=== PATIENT | male | born 1970 | race Caucasian/White ===

== ENCOUNTER 2019-06-19 09:49 | Outpatient (REF) | payer BC, SELFPAY ==
[2019-06-19 14:03] LABS: Calculated LDL 149 mg/dL (<100); Cholesterol 213 mg/dL (<200); Glucose 94 mg/dL (74-106); HDL Cholesterol 58 mg/dL (40-60); Triglyceride 33 mg/dL (<150)
== END 2019-06-19 10:09 ==
LOC: NCHCN 09:49
PROVIDERS: PCP Family Medicine; Visit Provider Nurse Practitioner
DX: Z13.1 Encounter for screening for diabetes mellitus (principal); Z13.220 Encounter for screening for lipoid disorders
CPT/HCPCS: 80061; 82947

== ENCOUNTER 2019-12-30 09:12 | Emergency (ER) | payer BC, SELFPAY ==
[2019-12-30 09:17] VITALS: BP 138/85; PULSE 95; RESP 16; TEMP 37.1; O2SAT 98
--- NOTE | 2019-12-30 09:40 | ED.GENADUL_ITS ---
Discharge Plan Disposition Patient Disposition: HOME Condition: Stable Discharge Details Chief Complaint: Nk/Back Pain Clinical Impression: Low back pain Primary Care Provider: Roxana Alejandro ED Provider: Edu Bates Home Meds and New Rx's Prescriptions: New cyclobenzaprine 10 mg tablet 10 mg PO TID PRNQty: 20 RF: 0 Discharge Instructions Instructions: Low Back Strain (ED) Additional Instructions: follow up with your primary care provider and physical therapy as soon as possible if you have fevers, difficulty urinating or weakness return to the emergency department you can take 1000mg tylenol and 600mg ibuprofen every 6 hours as needed for pain do not drink alcohol or operate heavy machinery if you take the cyclobenzaprine (flexeril) Stand Alone Forms: Physical Therapy Referral Medical Decision Making 49 yo male who denies chronic medical problems and never smoker comes in with cc of right lower back pain. States started yesterday after bending over digging a trench. Did not fall or have trauma. Has right lower back pain and normal gait, normal range of motion but feels better standing. No saddle anesthesia no urinary retention, normal reflexes. Has no findings on history or physical to suggest sea, cauda equina and no infectious symptoms to suggest osteo. Suspect back strain, will treat with muscle relaxer and reassess. pt feels mildly better with stable exam, no saddle anesthesia. Will have him f/u with PT and pcp and return precautions given Differential Diagnosis Differential Diagnosis: muscle strain, back strain, muscle spasm, disc herniation HPI General Mode of arrival: ambulatory . Date/Time Provider Initiated Documentation: 12/30/19 09:15 . Limitations to Documentation: no limitations . Information obtained by: patient . History of Present Illness 49 year old M presents to the emergency department with the chief complaint of right lower back pain, described as moderate, No relieving factors improve symptom(s), No exacerbating factors reported . Patient did receive the following treatments prior to arrival, NSAID Related Data Home Medications Medication Instructions Recorded Confirmed cyclobenzaprine 10 mg PO TID PRN #20 tab 12/30/19 Previous Rx's Medication Instructions Recorded cyclobenzaprine 10 mg PO TID PRN #20 tab 12/30/19 Allergies Allergy/AdvReac Type Severity Reaction Status Date / Time No Known Allergies Allergy Unverified 12/30/19 09:24 General Stated Complaint: Nk/Back Pain MARU: 4 Review of Systems All systems reviewed & are unremarkable except as noted in HPI and below Constitutional Constitutional: Denies chills, Denies fever(s) and Denies weakness Cardiovascular Cardiovascular: Denies chest pain and Denies dyspnea Respiratory Respiratory: Denies cough and Denies dyspnea Gastrointestinal Gastrointestinal: Denies abdominal pain, Denies nausea and Denies vomiting Genitourinary Genitourinary: Denies dysuria Integumentary/Breasts Skin/Breast: Denies rash Neurologic Neurologic: Denies weakness [facility] Social History Smoking/Tobacco Use Status: Never Alcohol Intake: current Alcohol Intake frequency: a few times a month Drug use: Never Do you feel safe at home: Yes Do you feel safe in your relationship?: Yes Exam Const General: no acute distress Orientation: alert HENMT Head: normal to inspection Ears: external ears normal General nose exam: external nose normal Mouth: moist mucous membranes Eyes General: appearance normal, both eyes and all related structures Neck Neck: normal visual inspection Resp Effort & Inspection: normal respiratory effort and able to speak in complete sentences Cardio Rate: regular rate Back/Spine/Pelvis Back: no CVA tenderness Skin General skin exam: no rashes or lesions noted Neuro General: patient alert and patient oriented x3 Extrem General: normal to inspection Psych Mental Status: mental status grossly normal Course Vital Signs Vital signs: Vital Signs Temperature 37.1 C 12/30/19 09:17 Pulse 95 H 12/30/19 09:17 Respiratory Rate 16 12/30/19 09:17 Blood Pressure 138/85 12/30/19 09:17 Pulse Oximetry 98 12/30/19 09:17 Temperature 37.1 C 12/30/19 09:17 Temperature Source Temporal Artery Scan 12/30/19 09:17 Pulse 95 H 12/30/19 09:17 Respiratory Rate 16 12/30/19 09:17 Respiratory Effort Non-Labored 12/30/19 09:22 Blood Pressure 138/85 12/30/19 09:17 Blood Pressure Position Standing 12/30/19 09:17 Pulse Oximetry 98 12/30/19 09:17 Oxygen Delivery Method Room Air 12/30/19 09:17 Oxygen Flow Rate 0 12/30/19 09:17 Pain Level 6 12/30/19 09:24
[2019-12-30] MEDS: Cyclobenzaprine 10 MG TAB PO (10:02)
== END 2019-12-30 10:36 | disposition home or self-care (01) ==
PROVIDERS: Emergency Provider Emergency Medicine; PCP Nurse Practitioner
DX: M54.5 Low back pain (principal); X50.0XXA Overexertion from strenuous movement or load, initial encounter; Y99.0 Civilian activity done for income or pay
CPT/HCPCS: 99283

== ENCOUNTER 2020-11-15 06:06 | Emergency (ER) | payer BC, SELFPAY ==
[2020-11-15] VITALS (36 sets, daily range): BP systolic 99–128; BP diastolic 66–83; PULSE 63–84; RESP 9–24; TEMP 36.2; O2SAT 94–100
--- NOTE | 2020-11-15 06:00 | RT.EKG_ITS ---
APPROVED REPORT Exam: Resting ECG Reason for Exam: dizziness/near syncope Patient Location: E HR:62 bpm ECG Measurements Heart Rate 62 AXIS CA 165 P 46 QRSd 97 QRS 65 QT 394 T 19 QTc 400 Conclusion Sinus rhythm...normal P axis, V-rate 60- 99 Physician: no stemi, intervals normal
[2020-11-15] MEDS: Normal Saline 1,000 ML 1000 ML IV ×2 (06:31→08:41)
[2020-11-15 06:37] LABS: Abs Immature Grans 0.01 10^3/uL (0.0-0.06); Absolute Basophil Count 0.02 10^3/uL (0.0-0.2); Absolute Eosinophil Count 0.11 10^3/uL (0.0-0.7); Absolute Lymphocyte Count 1.86 10^3/uL (1.2-3.4); Absolute Monocyte Count 0.51 10^3/uL (0.1-0.8); Absolute Neutrophil Count 3.12 10^3/uL (1.2-6.7); Basophils % 0.4; HCT 47.8 % (40.0-50.0); HGB 15.3 g/dL (13.5-17.5); Immature Grans % 0.2; MCH 26.2 pg (27.0-33.0); MCV 81.8 fL (80-95); MPV 9.7 fL (8.0-11.0); Monocytes % 9.1; Neutrophils % 55.3; Nucleated RBC 0 %; Platelet Count 158 10^3/uL (130-400); RBC 5.84 10^6/uL (4.36-5.78); RDW 13.1 % (11.8-14.1); RDW-SD 38.6 fL; WBC 5.63 10^3/uL (4.4-10.8)
--- NOTE | 2020-11-15 07:02 | ED.GENADUL_ITS ---
Discharge Plan Disposition Patient Disposition: HOME Condition: Improving Discharge Details Clinical Impression: Vasovagal near syncope Primary Care Provider: Roxana Alejandro ED Provider: Linsey Reyes Home Meds and New Rx's Prescriptions: Continued cyclobenzaprine 10 mg tablet 10 mg PO TID PRNQty: 20 RF: 0 Discharge Instructions Instructions: Near Syncope (ED) Additional Instructions: Drink plenty of fluids and get plenty of rest. Be sure to stand up slowly to prevent lightheadedness. Call your primary care doctor's office tomorrow to schedule a follow-up appointment for reevaluation this week. Return the cardiac cath lab technologist to the hospital as directed. Return immediately to the emergency department if you develop any worsening or new concerning symptoms. Discharge Data Discharge Physician: Linsey Reyes Medical Decision Making <Eugene Cabral DO - Last Filed: 11/15/20 07:10> This is a 49-year-old male no significant past medical history who presents today for evaluation of syncope. Patient states that last night at about 5 AM he woke up and had to go pee. As he was getting up he felt very lightheaded, dizzy, felt like he was about to pass out. Called for help and fell forward onto the bed. He did not strike his head hard. He did not lose consciousness however his was there states that he was going in and out of normal mentation. Entire episode lasted about 10 to 15 minutes until he was back to his normal level. EMS was called. Upon their arrival they noted that his blood pressure was in the 90s systolic, blood glucose is slightly low. However it by that time the patient had returned to his normal status, and elected to come in on his own for further evaluation. Patient admits to having a similar episode about a year ago. He denies any headache, chest pain, chest tightness, current shortness of breath, current vision changes, fever, chills. Of note he was notably sweaty and diaphoretic appearing during the episode. Patient denies any family history of sudden , cardiac problems. His does note that they had vigorous sex last evening, however there are no drugs involved, no cocaine, he had no issues or deficiencies during the episode per . The patient denies any headache red flags of worst headache of life, thunderclap headache, neck pain, fever, chills, concerning family history of polycystic kidney disease, Marfan syndrome, Tanner-Danlos syndrome, abdominal aortic aneurysm, aortic dissection, or intracranial aneurysm. Physical exam is notably unremarkable. No neurologic deficits, no murmur or bruit. Normal ambulation, normal gait. Mucous membranes are notably dry. Patient does admit to having a few beers last night for the November celebration, but states that this is not a typical or of significant excess. Differential at this time is highest for vasovagal syncope secondary to mild dehydration, however cardiac dysrhythmia, PE, or on the differential but less likely. Seizure is inconsistent with presentation and history, intercranial abnormality is inconsistent with current exam and history. Symptoms are also inconsistent with a cranial aneurysm nor rupture. Laboratory work-up shows normal white count, normal hemoglobin, electrolytes normal. Troponin and EKG unremarkable. Thyroid function good. Pending D-dimer. We will gently rehydrate, monitor closely and reassess. <Linsey Reyes DO - Last Filed: 11/15/20 10:16> 0730 -- Please see Dr. Cabral's note for initial presentation, exam and plan. Case endorsed to follow-up on labs and final disposition. Plan if D-dimer positive to proceed with CT chest but if negative can obtain a portable chest x- ray. Labs reviewed and unremarkable. D-dimer negative. Troponin negative. His EKG notes a rate of 62, sinus and no STEMI. Patient's description of events notes that he became lightheaded upon standing when awakened to urinate in the middle of the night. Denies any chest pain or palpitations. Review of vitals on EMS paperwork that provided note that his systolic blood pressure was in the 90s and his blood sugar was 60s. He states his symptoms improved when sitting down and he does feel better with IV fluids here. His blood pressure is now 117/74. He does endorse that he had 3 alcoholic drinks yesterday and ate less than usual. Suspect most likely vasovagal near syncope. The Holter monitor that was ordered per Dr. Cabral has been placed by respiratory. Patient still complaining of mild headache. He denies any head injury and has no focal deficits. Do not see an indication for CT head imaging. Will give another liter of IV fluids and IV Tylenol, obtain a portable chest x- ray and reassess. 1000 --chest x-ray negative. Patient reassessed and he denies any headache and feels much better. Blood pressure improved. Patient advised to return with a Holter monitor to the hospital as directed. Advised to call PCP tomorrow for follow-up this week. Usual and customary return precautions given prior to discharge. Medical Records Medical records reviewed: Yes I reviewed the patient's medical records. ECG Data Attestation: I personally reviewed and interpreted this ECG (s) as follows: Interpretation: Rate of 62, sinus, T wave inversion in lead III. No acute ST elevation or depression. [place] 165. QRS 65. QTc 400. HPI <Eugene Cabral, - Last Filed: 11/15/20 07:10> General Date/Time Provider Initiated Documentation: 11/15/20 06:08 . HPI Narrative: This is a 49-year-old male no significant past medical history who presents today for evaluation of syncope. Patient states that last night at about 5 AM he woke up and had to go pee. As he was getting up he felt very lightheaded, dizzy, felt like he was about to pass out. Called for help and fell forward onto the bed. He did not strike his head hard. He did not lose consciousness however his was there states that he was going in and out of normal mentation. Entire episode lasted about 10 to 15 minutes until he was back to his normal level. EMS was called. Upon their arrival they noted that his blood pressure was in the 90s systolic, blood glucose is slightly low. However it by that time the patient had returned to his normal status, and elected to come in on his own for further evaluation. Patient admits to having a similar episode about a year ago. He denies any headache, chest pain, chest tightness, current shortness of breath, current vision changes, fever, chills. Of note he was notably sweaty and diaphoretic appearing during the episode. Patient denies any family history of sudden , cardiac problems. His does note that they had vigorous sex last evening, however there are no drugs involved, no cocaine, he had no issues or deficiencies during the episode per . The patient denies any headache red flags of worst headache of life, thunderclap headache, neck pain, fever, chills, concerning family history of polycystic kidney disease, Marfan syndrome, Tanner-Danlos syndrome, abdominal aortic aneurysm, aortic dissection, or intracranial aneurysm. Related Data Home Medications Medication Instructions Recorded Confirmed cyclobenzaprine 10 mg PO TID PRN #20 tab 12/30/19 Previous Rx's Medication Instructions Recorded cyclobenzaprine 10 mg PO TID PRN #20 tab 12/30/19 Allergies Allergy/AdvReac Type Severity Reaction Status Date / Time No Known Allergies Allergy Unverified 12/30/19 09:24 General Stated Complaint: Dizzy/Sync MARU: 3 Review of Systems <Eugene Cabral DO - Last Filed: 11/15/20 07:10> All systems reviewed & are unremarkable except as noted in HPI and below PFSH <Eugene Cabral DO - Last Filed: 11/15/20 07:10> Social History Smoking/Tobacco Use Status: Never Smoking risk assessment performed?: Yes Alcohol Intake: current Alcohol Intake frequency: a few times a month Drug use: Never Do you feel safe at home: Yes Do you feel safe in your relationship?: Yes Exam <Eugene Cabral DO - Last Filed: 11/15/20 07:10> Narrative Exam Narrative: 1.Const: Well-nourished, Well-developed, appearing stated age 2.Eyes: PERRL, no conjunctival injection, and symmetrical lids. 3.ENT: Atraumatic external nose and ears. Notably dry MM. Neck: Symmetric, trachea midline, No thyromegaly. 4.CVS: +S1/S2, No murmurs or gallops. Peripheral pulses 2+ and equal in all extremities. Brisk capillary refill in all extremities. 5.RESP: Unlabored respiratory effort. Clear to auscultation bilaterally. No wheezes rales or rhonchi 6.GI: Soft, Nontender/Nondistended, No hepatosplenomegaly. No guarding or rebound. 7.MSK: Normocephalic/Atraumatic, Extremities w/o deformity or ttp No cyanosis or clubbing, Normal movement of all extremities 8.Skin: Warm, Dry. No rashes or lesions. 9.Neuro: social services technician II-XII grossly intact. Sensation grossly intact, no focal neurologic deficits. All 6 cardinal planes of vision are fully intact. No evidence of rotatory or vertical nystagmus. The patient demonstrated a normal rxyigc-hrje-dbdhwv, good dexterity. There was no evidence of dysdiadochokinesia. Patient was able to ambulate without difficulty. There was no wide-based gait. Romberg testing was normal. Hakv-sk-vthy testing was normal. Sensation was intact bilaterally as well as muscle strength bilaterally for all extremities. Patient was able to verbalize butter cup with no slurring, or miss pronunciation. 10.Psych: (AAO) x3. Appropriate mood and affect Course <Eugene Cabral, - Last Filed: 11/15/20 07:10> Vital Signs Vital signs: Vital Signs Temperature 36.2 C L 11/15/20 06:10 Pulse 76 11/15/20 06:10 Respiratory Rate 16 11/15/20 06:10 Blood Pressure 128/83 11/15/20 06:10 Pulse Oximetry 98 11/15/20 06:10 Temperature 36.2 C L 11/15/20 06:10 Temperature Source Skin 11/15/20 06:10 Pulse 76 11/15/20 06:10 Respiratory Rate 16 11/15/20 06:47 Respiratory Effort 11/15/20 06:47 Blood Pressure 128/83 11/15/20 06:10 Blood Pressure Position Sitting 11/15/20 06:10 Pulse Oximetry 98 11/15/20 06:10 Oxygen Delivery Method Room Air 11/15/20 06:10 Oxygen Flow Rate 0 11/15/20 06:10 Lab/Test Results Lab/Test Results: Laboratory Tests Range/Units 11/15/20 06:20 WBC (4.4-10.8) 10^3/uL 5.63 RBC (4.36-5.78) 10^6/uL 5.84 H Hgb (13.5-17.5) g/dL 15.3 Hct (40.0-50.0) % 47.8 MCV (80-95) fL 81.8 MCH (27.0-33.0) pg 26.2 L MCHC (32.0-36.0) % 32.0 RDW (11.8-14.1) % 13.1 Plt Count (130-400) 10^3/uL 158 MPV (8.0-11.0) fL 9.7 Immature Gran % 0.2 Neutrophils % 55.3 Lymphocytes % 33.0 Monocytes % 9.1 Eosinophils % 2.0 Basophils % 0.4 Nucleated RBC % % 0 Absolute Neutrophils (1.2-6.7) 10^3/uL 3.12 Absolute Lymphocytes (1.2-3.4) 10^3/uL 1.86 Absolute Monocytes (0.1-0.8) 10^3/uL 0.51 Absolute Eosinophils (0.0-0.7) 10^3/uL 0.11 Absolute Basophils (0.0-0.2) 10^3/uL 0.02 Sign Out <Eugene Cabral DO - Last Filed: 11/15/20 07:10> Sign Out Data: Sign Out Comment: Near syncope, follow-up on D-dimer. Last updated by Eugene Cabral DO at 11/15/20 07:22
[2020-11-15 07:04] LABS: ALT 33 U/L (16-63); AST 17 U/L (15-37); Albumin 3.7 g/dL (3.4-5.0); Alkaline Phosphatase 84 U/L (46-116); Anion Gap 8.1 mmol/L (3-11); BUN 19 mg/dL (7-18); Bilirubin, Total 0.3 mg/dL (0.2-1.0); CO2 27.9 mmol/L (21.0-32.0); Calcium 8.7 mg/dL (8.5-10.1); Chloride 107 mmol/L (98-107); Glucose 100 mg/dL (74-106); Potassium 3.6 mmol/L (3.5-5.1); Sodium 143 mmol/L (136-145); TSH 3.61 uIU/mL (0.36-3.74); Total Protein 7.2 g/dL (6.4-8.2); Troponin I < 0.05 ng/mL (<0.06)
--- NOTE | 2020-11-15 07:27 | HOLTER_ITS ---
APPROVED REPORT Conclusion This is a 48-hour monitor ordered for indication of palpitations. The patient was normal sinus rhythm with majority the recording with an average heart rate of 70 bpm. There were 0 episodes of ventricular tachycardia and one single PVC. There was one episode of supraventricular tachycardia lasting a total of 3 beats and rare PACs. There were no episodes of atrial fibrillation, no pauses greater than 3 seconds and no evidence of hi gh degree heart block. There were no patient triggered events.
[2020-11-15 07:46] LABS: D-Dimer 153 ng/mlFEU (<500)
--- NOTE | 2020-11-15 08:30 | DI.RAD_ITS ---
Exam(s) XR PORTABLE CHEST AP EXAM: XR PORTABLE CHEST AP CLINICAL HISTORY: dizziness, r/o acute disease TECHNIQUE: 2D digital imaging was performed. COMPARISON: No exams were available for comparison FINDINGS: LUNGS: Minimal linear scarring or atelectasis at the lung bases. Clear. No pleural abnormality seen . HEART: Normal. MEDIASTINUM: Normal. BONES: Unremarkable. IMPRESSION: No acute pulmonary findings. DATA REPOSITORY: RADIATION DOSE DELIVERED:
[2020-11-15] MEDS: ACETAMINOPHEN 1,000 MG/100 ML BTL 400 MG IVPB (08:41)
--- NOTE | 2020-11-15 09:19 | DI.VRAD_ITS ---
PROCEDURE INFORMATION: Exam: XR Chest Exam date and time: 11/15/2020 8:32 AM Age: 49 years old Clinical indication: Other: Dizziness TECHNIQUE: Imaging protocol: XR of the chest. Views: 1 view. COMPARISON: No relevant prior studies available. FINDINGS: Lungs: Unremarkable. No consolidation. Pleural spaces: Unremarkable. No pleural effusion. No pneumothorax. Heart/Mediastinum: Unremarkable. No cardiomegaly. Bones/joints: Unremarkable. IMPRESSION: No acute findings. Dictated and Authenticated by: Jelena Hickey MD. Ordering:JOHN Stiles MD
== END 2020-11-15 10:26 | disposition home or self-care (01) ==
PROVIDERS: Student in an Organized Health Care Education/Training Program; Emergency Provider Physician Assistant; PCP Nurse Practitioner
DX: R55 Syncope and collapse (principal); R51.9 Headache, unspecified; E86.0 Dehydration
CPT/HCPCS: 36415; 80053; 93005; 96361; 96374; 99285; 71045; 83735; 84443; 84484; 85025; 85379; 93010; 93225; 99284; J0131

== ENCOUNTER 2020-11-19 14:14 | Outpatient (CLI) | payer BC, SELFPAY | END 2020-11-19 14:34 | PROVIDERS: PCP Nurse Practitioner; Visit Provider Physician Assistant | DX: R00.2 Palpitations (principal) | CPT/HCPCS: 93226 ==

== ENCOUNTER 2022-01-05 07:10 | Day surgery (SDC) | payer BC, SELFPAY ==
--- NOTE | 2022-01-05 05:52 | W.PM.HP.N ---
Date of service: 01/05/22 Assessment and Plan Assessment and plan (1) Screening for colon cancer: Status: Acute Assessment and plan: Proceed with screening colonoscopy today History of Present Illness Narrative: 50 y/o male with history of hemorrhoids presents for colonoscopy his first screening pre-op. He denies a family history of colon cancer. He denies any changes in bowel habits including bloody or black tarry stools, abdominal pain, diarrhea or constipation. He denies constitutional symptoms. Denies use of marijuana or any other recreational or illegal drugs. Review of Systems Constitutional Constitutional: Reports system reviewed and no additional complaints, except as documented Eyes Eyes: Reports system reviewed and no additional complaints, except as documented Cardiovascular Cardiovascular: Reports system reviewed and no additional complaints, except as documented Respiratory Respiratory: Reports system reviewed and no additional complaints, except as documented Gastrointestinal Gastrointestinal: Reports diarrhea and Reports loose stools Comments: from prep Musculoskeletal Musculoskeletal: Reports system reviewed and no additional complaints, except as documented Neurologic Neurologic: Reports system reviewed and no additional complaints, except as documented PFSH All Active Problems Screening for colon cancer (Acute) Hemorrhoids (Acute) Medical History Vasovagal near syncope pt. states this only happened x1, stated it was r/t to dehydration and low blood sugar Surgical History History of esophagogastroduodenoscopy (EGD) Social History Smoking/Tobacco Use Status: Never Smoking risk assessment performed?: Yes Alcohol Intake: current Alcohol Intake frequency: a few times a month Alcohol type: beer and hard liquor Drug use: Never Substance use type: does not use Do you feel safe at home: Yes Do you feel safe in your relationship?: Yes Meds Allergies and Home Medications Allergies Allergy/AdvReac Type Severity Reaction Status Date / Time No Known Allergies Allergy Unverified 01/05/22 07:30 Exam Const General: cooperative, healthy appearing and comfortable Orientation: awake and oriented x3 Eyes General: appearance normal, both eyes and all related structures Conjunctivae: conjunctivae normal Sclera: sclerae normal Resp Effort & Inspection: normal respiratory effort and able to speak in complete sentences Cardio Jugular venous pressure: no JVD Rate: regular rate GI Inspection: non-distended Palpation: soft, no guarding, no hernias and nontender Auscultation: normal bowel sounds Skin General skin exam: normal turgor Neuro General: patient alert, patient awake and patient oriented x3 Cognition: normal cognition Extrem Right lower extremity: no edema Left lower extremity: no edema
--- NOTE | 2022-01-05 05:55 | W.PM.DSUDISC ---
Discharge Plan Disposition Patient Disposition: HOME Condition: Good Discharge Details Reason For Visit: Colonoscopy Attending Provider: Chicho Barrera Primary Care Provider: Kade Bolivar Home Meds and New Rx's Prescriptions: Discontinued bisacodyl [Dulcolax (bisacodyl)] 5 mg tablet,delayed release (DR/EC) 5 mg PO ONCE Qty: 4 0RF Rx Instructions: Take according to provider's instructions for colonoscopy prep. polyethylene glycol 3350 17 gram/dose powder 17 g PO ONCE Qty: 238 0RF Rx Instructions: To be taken as directed by prescriber's office for colonoscopy prep. Discharge Instructions Instructions: Colonoscopy (DC), Diverticulosis (GEN), Diverticulosis Diet (GEN), Hemorrhoids (GEN) Additional Instructions: 1. If tolerated, consume a soft, low fiber diet for 1-2 days. [address] not drive, drink alcohol, operate machinery, make critical decisions, or do activities that require coordination or balance for 24 hours. 3. Because air was put into your colon during the procedure, expelling air from your rectum (passing gas or farting) is normal. 4. You may not have a bowel movement for 1-3 days because of the colonoscopy prep. This is normal. 5. Go directly to the emergency room if you notice any of the following: Develop chills (warm to touch), or if you have a thermometer and your temperature is above 101 Difficulty breathing or difficultly swallowing Persistent vomiting Severe abdominal pain, other than gas cramps Severe chest pain Black, tarry stools Any bleeding ? exceeding one tablespoon 6. Call your physician if the site where your intravenous was started becomes red, swollen, painful, and warm to touch. 7. Your physician has reviewed your pre-procedure medications. Please continue to take those medications as previously ordered. You will be given specific information/education regarding any changes to your medications before leaving. Referrals: Kade Bolivar [Primary Care Provider] - Activity:: Activity as Tolerated Diet:: As Tolerated Discharge Orders Discharge Orders: Discharge Order (Routine); Ordered 01/05/22 Ordered By: Chicho Barrera DS: Diagnosis Discharge Diagnosis (1) Screening for colon cancer: Status: Acute Asessment and Plan: Diverticulosis, internal hemorrhoids
--- NOTE | 2022-01-05 05:57 | W.COLOREPORT ---
Colonoscopy Report Date of procedure: 01/05/22 Pre-op diagnosis general: Routine health maintenece screening colonoscopy Post-op diagnosis procedure note: other (Diverticulosis, internal hemorrhoids) Procedure: Screening colonocsopy Surgeon: Chicho Barrera Anesthesia Type: General:No Airway Estimated blood loss (mL): 0 Pathology: none sent Complications: None Disposition: same day Prep: Miralax/Dulcolax Procedure Start Time: 08:39 Procedure End Time: 08:54 Retraction Time: 13 Findings: Sigmoid diverticulosis, internal hemorrhoids Procedure Description: After the induction of monitored anesthetic care, and with the patient in left lateral decubitus position, I began by performing an external anorectal exam.? Perineum and skin were normal, as was the anal verge.? There was some evidence of external hemorrhoids in the form of skin tags.? Next, I performed a digital rectal exam.? I did not appreciate any abnormal findings.? Next, I advanced a colonoscope into the rectal vault.? I performed retroflexion.? I did see signs of grade 1 internal hemorrhoids.? Using insufflation, I then advanced the colonoscope beyond the rectal folds and into the sigmoid colon before advancing towards the cecum.? The quality of the prep was adequate.? The scope was noted to be in the cecum by identification of the ileocecal valve and appendiceal orifice.? I then began withdrawing the colonoscope using repeated irrigation as necessary for full evaluation of the colonic mucosa. ?There was sigmoid diverticulosis. once the scope was withdrawn to the level of the rectum, great care was taken to examine portions of the rectal folds.? Finally, the scope was withdrawn and the patient was brought to the same-day surgery recovery unit as the anesthetic wore off. ?The findings and instructions were shared with the patient prior to discharge.
[2022-01-05 07:25] VITALS: BP 131/82; PULSE 79; RESP 18; TEMP 36.9; O2SAT 98
[2022-01-05] MEDS: Lactated Ringers 1,000 ML 80 ML IV (07:40)
--- NOTE | 2022-01-05 08:15 | W.ANESPRE ---
General Info Date of Service Date Performed: 01/05/22 Height: 5 ft 9 in Weight: 91.3 kg Body Mass Index (BMI): 29.7 Surgical Procedure: Operation Date: 01/05/22 08:50 Proposed Procedure Side Surgeon p Colonoscopy Chicho Barrera MD Meds Allergies and Home Medications Allergies Allergy/AdvReac Type Severity Reaction Status Date / Time No Known Allergies Allergy Unverified 01/05/22 07:30 Current Visit Medications: Current Medications Generic Name Dose Route Start Last Admin Trade Name Jabari PRN Reason Stop Dose Admin Ringer's Solution 1,000 mls @ 80 mls/hr 01/05/22 06:00 01/05/22 07:40 IV 02/03/22 23:59 80 mls/hr INFUSION MARGARET Administration IV Miscellaneous Supplies 1 each 01/05/22 06:00 Iv Access IV 02/03/22 23:59 DIRECTED MARGARET Sodium Chloride 0 ml 01/05/22 06:00 Normal Saline Flush 10 Ml Syr IV 02/03/22 23:59 PRN PRN Sodium Chloride 0 ml 01/05/22 06:00 Normal Saline 10 Ml Vial IJ 02/03/22 23:59 DIRECTED PRN Sterile Water 0 ml 01/05/22 06:00 Water,Injection,Sterile 10 Ml Vial IJ 02/03/22 23:59 DIRECTED PRN PFSH Active Problems Active Problems: Problem Status Onset Code Screening for colon cancer Z12.11 Hemorrhoids K64.9 Medical History Medical History Vasovagal near syncope pt. states this only happened x1, stated it was r/t to dehydration and low blood sugar Medical History Comments:: Pt unsure if he had delayed emergence from previous EGD. Surgical History Surgical History History of esophagogastroduodenoscopy (EGD) Tobacco Smoking/Tobacco Use Status: Never Alcohol Alcohol Intake: current Alcohol intake frequency: a few times a month Alcohol type: beer and hard liquor Substance Use Substance use: Never Substance use type: does not use Vital Signs and Lab Results Vital Signs Most Recent Vital Signs in EMR: Most Recent Vital Signs Temp Pulse Resp BP Pulse Ox 36.9 C 79 18 131/82 98 01/05/22 07:25 01/05/22 07:25 01/05/22 07:25 01/05/22 07:25 01/05/22 07:25 Lab Results Blood Type / Crossmatch: No Data to Display Complete Blood Count: No Data to Display Complete Metabolic Panel: No Data to Display Liver Function Panel: No Data to Display Coagulation Panel: No Data to Display Cardiac Panel: No Data to Display Arterial Blood Gas: No Data to Display Venous Blood Gas: No Data to Display Pancreas Panel: No Data to Display Thyroid Panel: No Data to Display Infectious Disease: No Data to Display Blood Cultures: No Data to Display Toxicology Panel: No Data to Display Anesthesia Assessment and Plan Anesthesia History Personal History: No History of Anesthesia Complications Family History: No Family History of Anesthesia Complications Exercise Tolerance Exercise Tolerance: Metabolic Equivalents>4 Pertinent Negatives Pertinent Negatives: No Symptoms of GERD Cardiac & Pulmonary Exam Cardiac Exam: Normal S1/S2 Heart Sounds Pulmonary Exam: Clear Bilateral Breath Sounds Implantable Cardiac Device Does patient have a Pacemaker or an ICD?: No Airway Exam Known Difficult Airway: No Mallampati Class: 2 Mouth Opening: Normal (> 3cm) Thyromental Distance: Greater than 3 cm Neck Range of Motion: Full ROM Neck Circumference: Normal Teeth Condition: Normal Dentition ASA Classification ASA Score: ASA 2 Emergency Case?: No NPO Status NPO Status: NPO Clears >2 hours, Solids >8 hours Anesthesia Plan Resuscitation Status: Full Code Anesthesia Technique: General Anesthesia Airway Planned: Natural Airway Monitors Used: Standard Monitors
[2022-01-05 08:39] VITALS: BMI 29.7
[2022-01-05 09:02] VITALS: BP 115/81; PULSE 78; RESP 17; TEMP 36.5; O2SAT 94
[2022-01-05 09:28] VITALS: BP 114/75; PULSE 69; RESP 20; TEMP 36.9; O2SAT 97
--- NOTE | 2022-01-05 15:32 | W.ANESPOSTOP ---
Postoperative Evaluation Date, Time and Location Date Performed: 01/05/22 Time Performed: 15:32 Patient Location: Day Surgery Unit Vital Signs Most Recent Imported Vital Signs: Most Recent Vital Signs Temp Pulse Resp BP Pulse Ox 36.9 C 69 20 114/75 97 01/05/22 09:28 01/05/22 09:28 01/05/22 09:28 01/05/22 09:28 01/05/22 09:28 Pain Score Most Recent Pain Score: Most Recent Pain Score Pain Level 7 01/05/22 09:28 Assessment Mental Status: Awake (Alert & Oriented to Patient Baseline) Airway and Respiratory Function: Patent airway with normal (patient baseline) respiratory exam Cardiovascular Function: Hemodynamically Stable Hydration Status: Adequately Hydrated Nausea & Vomiting: No Nausea or Vomiting Pain: Pain is tolerable per patient (At time that I saw the patient, he described it as pressure in the abdomen) Peripheral Nerve Block: Patient did not receive a nerve block
== END 2022-01-05 09:53 | disposition home or self-care (01) ==
PROVIDERS: PCP Physician Assistant; Visit Provider Surgery
PROC: 0DJD8ZZ Inspection of Lower Intestinal Tract, Via Natural or Artificial Opening Endoscopic (ICD-10-PCS; CPT 45378; principal; 2022-01-05 08:45)
DX: Z12.11 Encounter for screening for malignant neoplasm of colon (principal); K57.30 Diverticulosis of large intestine without perforation or abscess without bleeding; K64.0 First degree hemorrhoids
CPT/HCPCS: 45378

== ENCOUNTER 2022-09-18 09:59 | Outpatient (REF) | payer BC, SELFPAY ==
[2022-09-18 15:28] LABS: Anion Gap 7.5 mmol/L (3-11); BUN 19 mg/dL (7-18); CO2 29.5 mmol/L (21.0-32.0); Calcium 9.1 mg/dL (8.5-10.1); Calculated LDL 151 mg/dL (<100); Chloride 105 mmol/L (98-107); Cholesterol 221 mg/dL (<200); Estimated GFR 91.69 (mL/min/1.73m2); Glucose 87 mg/dL (74-106); HDL Cholesterol 58 mg/dL (40-60); Potassium 4.3 mmol/L (3.5-5.1); Sodium 142 mmol/L (136-145); Triglyceride 63 mg/dL (<150)
[2022-09-18 21:36] LABS: PSA, Screening 0.7 ng/mL (<=3.5)
== END 2022-09-18 10:00 | disposition home or self-care (01) ==
LOC: NCHCN 09:59
PROVIDERS: PCP Physician Assistant; Visit Provider Physician Assistant
DX: Z00.00 Encounter for general adult medical examination without abnormal findings (principal); Z13.228 Encounter for screening for other metabolic disorders; Z13.220 Encounter for screening for lipoid disorders; Z12.5 Encounter for screening for malignant neoplasm of prostate
CPT/HCPCS: 80048; 80061; 84153

== ENCOUNTER 2024-07-23 09:57 | Outpatient (REF) | payer BC, SELFPAY ==
[2024-07-23 15:33] LABS: Hemoglobin A1C 5.6 % (<5.7)
[2024-07-23 15:37] LABS: ALT 35 U/L (16-63); AST 22 U/L (15-37); Alkaline Phosphatase 93 U/L (46-116); Anion Gap 9.2 mmol/L (3-11); BUN 13 mg/dL (7-18); Bilirubin, Total 0.5 mg/dL (0.2-1.0); CO2 28.8 mmol/L (21.0-32.0); Calcium 8.9 mg/dL (8.5-10.1); Calculated LDL 152 mg/dL (<100); Chloride 106 mmol/L (98-107); Cholesterol 231 mg/dL (<200); Estimated GFR 90.56 (mL/min/1.73m2); Glucose 87 mg/dL (74-106); HDL Cholesterol 64 mg/dL (>or=40); Potassium 4.2 mmol/L (3.5-5.1); Sodium 144 mmol/L (136-145); Total Protein 7.1 g/dL (6.4-8.2); Triglyceride 76 mg/dL (<150)
[2024-07-23 23:00] LABS: PSA, Screening 0.9 ng/mL (<=3.5)
== END 2024-07-23 09:58 | disposition home or self-care (01) ==
LOC: NCHCN 09:57
PROVIDERS: PCP Physician Assistant; Visit Provider Physician Assistant
DX: E78.5 Hyperlipidemia, unspecified (principal); Z13.1 Encounter for screening for diabetes mellitus; Z12.5 Encounter for screening for malignant neoplasm of prostate
CPT/HCPCS: 80053; 80061; 84153; 83036